=== PATIENT | female | born 1975 | race Caucasian/White ===

== ENCOUNTER → 2016-09-15 | Outpatient (CLI) | payer BC ==
--- NOTE | 2016-09-16 10:04 | US ---
EXAMINATION TYPE: US transvaginal DATE OF EXAM: 09/15/2016 4:36 PM COMPARISON: NONE CLINICAL HISTORY: R10.2 PELVIC AND PERINEAL PAIN. TECHNIQUE: Transvaginal (TV) and Transabdominal (TA) Date of LMP: 09/01/16 EXAM MEASUREMENTS: Uterus: 9.4 x 3.5 x 5.2 cm Endometrial Stripe: 0.9 cm Right Ovary: 2.0 x 1.4 x 1.4 cm Left Ovary: Not visualized cm TECHNOLOGIST IMPRESSION: wnl 1. Uterus: 2. Endometrium: ff in endocervical canal 3. Right Ovary: wnl 4. Left Ovary: Not visualized 5. Bilateral Adnexa: wnl 6. Posterior cul-de-sac: wnl IMPRESSION: 1. Limited pelvic ultrasound with nonvisualization of the left ovary. 2. Minimal amount of free fluid within the endometrial canal.
== END | disposition home or self-care (01) ==
LOC: RADUSWWP 16:20
PROVIDERS: ATTEND Family Medicine
DX: R10.2 Pelvic and perineal pain (principal)
CPT/HCPCS: 76830

== ENCOUNTER → 2016-09-24 | Outpatient (CLI) | payer BC ==
--- NOTE | 2016-09-25 08:21 | CT ---
EXAMINATION TYPE: CT abdomen pelvis wo con DATE OF EXAM: 09/24/2016 6:10 PM COMPARISON: Ultrasound pelvis 15 September 2016 HISTORY: Patient having left lower quadrant pain CT DLP: 2054.9 mGycm Automated exposure control for dose reduction was used. TECHNIQUE: Helical acquisition of images from the lung bases through the pelvis. FINDINGS: LUNG BASES: No significant abnormality is appreciated. AORTA: No significant abnormality is appreciated. LIVER/GB: Patient is post cholecystectomy. Liver shows no mass on the noncontrast exam. PANCREAS: No significant abnormality is seen. SPLEEN: Upper limit of normal in size ADRENALS: No significant abnormality is seen. KIDNEYS: No significant abnormality is seen. REPRODUCTIVE ORGANS: No significant abnormality is seen. URINARY BLADDER: No significant abnormality is seen. BOWEL: Appendix is normal. There is no bowel obstruction. FREE AIR: No Free Air is visible. ASCITES: None visible. There is a small umbilical hernia containing fat. PELVIC ADENOPATHY: None visualized. RETROPERITONEAL ADENOPATHY: No Retroperitoneal Adenopathy visible. OSSEOUS STRUCTURES: No significant abnormality is seen. IMPRESSION: NONCONTRAST EXAM MAY LIMIT SENSITIVITY. NO ABNORMALITY EVIDENT TO ACCOUNT FOR PATIENT'S SYMPTOMS. Fol low-up as indicated.
== END | disposition home or self-care (01) ==
LOC: RADCTMAIN 17:24
PROVIDERS: ATTEND Family Medicine
DX: R10.32 Left lower quadrant pain (principal)
CPT/HCPCS: 74176

== ENCOUNTER → 2021-01-27 | Outpatient (CLI) | payer BC ==
--- NOTE | 2021-01-27 18:07 | CT ---
EXAMINATION TYPE: CT abdomen pelvis wo con DATE OF EXAM: 01/27/2021 COMPARISON: 09/24/2016 INDICATION: LLQ pain and bloating DLP: 1558.4 mGycm, Automated exposure control for dose reduction was used. CONTRAST: 0 mL of Isovue 300. Study performed without Oral Contrast TECHNIQUE: Axial images were obtained from above the diaphragm to the pubic rami in the axial plane a t 5 mm thick sections. Reconstructed images are reviewed on the computer in the coronal plane. FINDINGS: Limited CT sections are obtained the lung bases. The lung bases are clear. CT ABDOMEN: Liver: Normal Spleen: Normal Pancreas: Normal Adrenal glands: The adrenal glands are normal. Gallbladder: Surgically absent Kidneys: No masses are evident. No hydronephrosis is present. No cysts are present. No renal stone s are evident Aorta: Normal Inferior vena cava: Normal. CT PELVIS: Loops of bowel within the abdomen and pelvis are normal. The study is without oral contrast limit ing bowel evaluation Appendix: Not visualized. No suspicious dilated tubular structure or inflammatory change evident Urinary bladder: Decompressed with limited evaluation Genitourinary structures: Uterus is normal. Adnexal regions are clear Osseous structures: No suspicious lytic or sclerotic lesions. IMPRESSIONS: 1. No suspicious abnormality account for left lower quadrant pain
== END | disposition home or self-care (01) ==
LOC: RADCTMAIN 08:36
PROVIDERS: ATTEND Family Medicine
DX: R10.32 Left lower quadrant pain (principal); R14.0 Abdominal distension (gaseous)
CPT/HCPCS: 74176